=== PATIENT | female | born 1990 | race Caucasian/White ===

== ENCOUNTER → 2019-12-19 | Outpatient (CLI) | payer BC ==
--- NOTE | 2019-12-19 08:59 | Diagnostic Imaging Report ---
PROCEDURE: MR imaging of the brain without contrast. TECHNIQUE: Multiplanar, multisequence MR imaging of the brain was performed without contrast. 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 FINDINGS: There was no cerebellopontine angle mass or mass effect. The 7th and 8th cranial nerve complexes and visualized structures of the IACs unremarkable. There is no mastoid effusion. Some membrane thickening and a small mucus retention cyst in the right maxillary sinus. The orbits and remaining paranasal sinuses clear. The supra and infratentorial cerebral cortical volume unremarkable. There are no foci of abnormal diffusion restriction. No findings of an acute or subacute ischemic infarct. No focal or generalized cerebral edema. There is no hemorrhage. No abnormal extra-axial fluid collection. IMPRESSION: Unremarkable brain MRI, in particular no findings to explain the presenting complaint. Dictated by: Dictated on workstation # [id number]
--- NOTE | 2019-12-19 09:01 | Diagnostic Imaging Report ---
PROCEDURE: MR imaging cervical spine without contrast. TECHNIQUE: Multiplanar, multisequence MR imaging of the cervical spine was performed without contrast. INDICATION: Twitching on the right side of the face. No prior studies are available for comparison. FINDINGS: Curvature and alignment of the cervical spine is normal. The vertebral body marrow signal is normal. There is normal height and signal intensity to the cervical intervertebral discs. The cervical spinal cord demonstrates homogeneous signal intensity and normal morphology. The craniocervical junction is unremarkable. The central canal and neural foramina are patent at all levels. No focal disc protrusion is seen. IMPRESSION: Unremarkable MRI of the cervical spine. Dictated by: Dictated on workstation # [id number]
== END ==
LOC: RAD 07:40
PROVIDERS: ATTEND Family Medicine
DX: G51.31 Clonic hemifacial spasm, right (principal); R25.3 Fasciculation
CPT/HCPCS: 70551; 72141